=== PATIENT | male | born 1955 | race Caucasian/White ===

== ENCOUNTER 2020-08-04 13:18 | Emergency (ER) | payer MEDICAID ==
[~2020-08-04] VITALS: Ht 193 cm; Wt 145.0 kg
[2020-08-04] MEDS ORDERED: HYDROCODONE/ACETAMINOPHEN 5/325MG TABLET PO STA (14:37)
[2020-08-04 14:53] VITALS: BP 129/88
[2020-08-04] MEDS ORDERED: NAPR-681 PO (15:47)
[2020-08-04] MEDS ORDERED: CYCL5TAB PO (15:47)
== END 2020-08-04 16:10 | disposition home or self-care (01) ==
LOC: ER 13:45
DX: M79.661 Pain in right lower leg (principal); I10 Essential (primary) hypertension
CPT/HCPCS: 73590; 93971; 99284